=== PATIENT | male | born 1980 | race Two or more races ===

== ENCOUNTER 2017-02-11 19:12 | Emergency (ER) | payer MEDICAID ==
--- NOTE | 2017-02-11 20:26 | ED PDOC ---
HPI: Psych/Substance Abuse Time Seen by Provider: 02/11/17 19:30 Chief Complaint (Nursing): Psychiatric Evaluation Chief Complaint (Provider): Psychiatric Evaluation ED Caveat: Uncooperative, Psychotic History Per: EMS Onset/Duration Of Symptoms: Days (x 1) Additional Complaint(s): Ronak Guzman is a 36 year old male who was brought in by EMS for psychiatric evaluation, onset a few hours ago. According to EMS, he was found at the pharmacy acting abnormally. When the pharmacy staff approached him, he swallowed a handful of iron pills. Upon arrival to the ED he did not answer questions so the history will be limited. The patient as been treated at [facility] for acute psychosis and transferred to [facility] multiple times. PMD: non [facility] provider Past Medical History Reviewed: Historical Data, Nursing Documentation, Vital Signs Vital Signs: Last Vital Signs Temp 98.0 F 02/11/17 19:21 Pulse 92 H 02/11/17 19:21 Resp 18 02/11/17 19:21 BP 140/87 02/11/17 19:21 Pulse Ox 99 02/11/17 19:21 - Medical History Other PMH: Schizoaffective disorder - Surgical History Other surgeries: Unknown - Family History Family History: States: Unknown Family Hx - Home Medications Home Medications: Ambulatory Orders Medication Instructions Recorded No Known Home Med 02/12/17 - Allergies Allergies/Adverse Reactions: Allergies Allergy/AdvReac Type Severity Reaction Status Date / Time Unobtainable Allergy Verified 02/11/17 19:25 Review of Systems Review Of Systems: ROS cannot be obtained secondary to pt's inabilty to answer questions. Physical Exam - Reviewed Nursing Documentation Reviewed: Yes Vital Signs Reviewed: Yes - Physical Exam Appears: Positive for: No Acute Distress Head Exam: Positive for: ATRAUMATIC, NORMOCEPHALIC Skin: Positive for: Warm, Dry Eye Exam: Positive for: EOMI, PERRL. Negative for: Nystagmus ENT: Positive for: Pharynx Is (clear) Neck: Positive for: Painless ROM, Supple Cardiovascular/Chest: Positive for: Regular Rate, Rhythm. Negative for: Murmur Respiratory: Positive for: Normal Breath Sounds. Negative for: Wheezing Gastrointestinal/Abdominal: Positive for: Soft. Negative for: Tenderness Back: Positive for: Normal Inspection. Negative for: Vertebral Tenderness Extremity: Positive for: Normal ROM. Negative for: Capillary Refill Lymphatic: Negative for: Adenopathy Neurologic/Psych: Positive for: Alert, Mood/Affect (minimally verbal and flat, possible internal stimuli). Negative for: Motor/Sensory Deficits - Laboratory Results Result Diagrams: 02/11/17 20:24 02/11/17 20:24 - ECG ECG: Positive for: Interpreted By Me ECG Rhythm: Positive for: Normal QRS, Normal ST Segment, Sinus Rhythm O2 Sat by Pulse Oximetry: 99 Pulse Ox Interpretation: Normal - Radiology X-Ray: Interpreted by Me X-Ray Interpretation: No Acute Disease - Critical Care Total Time (In Min): 30 Comments: For management of violent psychotic behavior Documented Critical Care: Time excludes all time spent performint seperately billable procedures Medical Decision Making Medical Decision Making: Time: 19:48 Impression: Altered Mental Status Differential diagnoses include psychosis, drug/ alcohol intoxication, metabolic encephalopathy, iron overdose Plan: --EKG --urine Drug screen --Poison Control consult --Urine Dipstick --EKG --Abdomen with chest X Ray --Chest X Ray 1030p --Labs and imaging reviewed, all are unremarkable. Xrays did not show any presence of iron tablets. --According to previous medical records, patient was diagnosed with schizoaffective disorder previously, and patient has similar lack of cooperation with history and minimal communication on previous visits as well. MR at those visits #[id number] --Pt medically stable for psychiatric admission. 1120p Pt began to have destructive behavior and punching canchola/items in the room. Unable to redirect. Pt will be medicated for violent psychotic behavior. Scribe Attestation: Documented by Brittney Muñoz, acting as a scribe for Sonali Brody MD. Provider Scribe Attestation: All medical record entries made by the Scribe were at my direction and personally dictated by me. I have reviewed the chart and agree that the record accurately reflects my personal performance of the history, physical exam, medical decision making, and the department course for this patient. I have also personally directed, reviewed, and agree with the discharge instructions and disposition. Disposition - Clinical Impression Clinical Impression: Psychosis - Disposition Disposition: Transfer of Care Disposition Time: 00:00 Condition: STABLE Forms: [employer] (Tajik) Patient Signed Over To: Wicho Quinteros Handoff Comments: Pending crsis eval
[2017-02-11 20:28] LABS: BASO % 0.4 % (0.0-2.0); EOS # 0.1 K/uL (0.0-0.7); EOS % 1.3 % (0.0-4.0); HEMATOCRIT 43.2 % (35.0-51.0); LYMPH # 1.6 K/uL (1.0-4.3); LYMPH % 16.2 % (20.0-40.0); MEAN CELL VOLUME 86.1 fl (80.0-94.0); MEAN CORPUSCULAR HEMOGLOBIN 28.5 pg (27.0-31.0); MEAN CORPUSCULAR HGB CONC 33.1 g/dL (33.0-37.0); MONO # 0.8 K/uL (0.0-0.8); MONO % 8.1 % (0.0-10.0); NEUT # 7.4 K/uL (1.8-7.0); RED CELL DISTRIBUTION WIDTH 12.9 % (11.5-14.5)
[2017-02-11 20:40] LABS: IRON 74 ug/dL (49-181)
[2017-02-11 20:41] LABS: ALCOHOL SERUM < 10 mg/dl (0-10); ALKALINE PHOSPHATASE 73 U/L (38-126); ALT/SGPT 37 U/L (21-72); AST/SGOT 31 U/L (17-59); BILIRUBIN,TOTAL 0.5 mg/dl (0.2-1.3); BLOOD UREA NITROGEN 12 mg/dl (9-20); CALCIUM 9.2 mg/dL (8.4-10.2); CARBON DIOXIDE 26 mmol/L (22-30); CHLORIDE 103 mmol/L (98-107); GFR AFRICAN-AMERICAN > 60; GLUCOSE,RANDOM 112 mg/dL (75-110); PHOSPHOROUS 2.4 mg/dl (2.5-4.5); POTASSIUM 3.6 MMOL/L (3.6-5.0); SODIUM 141 mmol/l (132-148); TOTAL PROTEIN 8.4 G/DL (6.3-8.2)
[2017-02-11 20:49] LABS: VALPROIC ACID < 10.0 ug/mL (50.0-100.0)
[2017-02-11 20:52] LABS: ALB/GLOB RATIO 1.2 (1.0-2.1); PARTIAL THROMBOPLASTIN TIME 31.7 Seconds (25.6-37.1)
[2017-02-11 21:13] LABS: THYROID STIMULATING HORMONE 1.86 mIU/ML (0.46-4.68)
--- NOTE | 2017-02-12 00:53 | ED PDOC ---
- Laboratory Results Result Diagrams: 02/11/17 20:24 02/11/17 20:24 - ECG O2 Sat by Pulse Oximetry: 99 Medical Decision Making Medical Decision Making: Time: 00:39 Patient signed out to me by Dr. Sonali Brody MD pending [facility] screener evaluation. Reassess time: 07:00 Patient to be signed out to Dr. Ammy MD pending [facility] screener evaluation. Scribe Attestation: Documented by Buddy Balderrama acting as a scribe for Wicho Quinteros MD. Provider Attestation: All medical record entries made by the Scribe were at my direction and personally dictated by me. I have reviewed the chart and agree that the record accurately reflects my personal performance of the history, physical exam, medical decision making, and the department course for this patient. I have also personally directed, reviewed, and agree with the discharge instructions and disposition. Disposition - Clinical Impression Clinical Impression: Psychosis - POA Present On Arrival: None - Disposition Disposition: Routine/Home Disposition Time: 07:00 (Patient to be signed out to Dr. Ammy MD pending [facility] screener evaluation.) Condition: STABLE Forms: [employer] (Latvian) Patient Signed Over To: Myriam Gimenez
--- NOTE | 2017-02-12 06:50 | ED PDOC ---
- Laboratory Results Result Diagrams: 02/11/17 20:24 02/11/17 20:24 - ECG O2 Sat by Pulse Oximetry: 99 Medical Decision Making Medical Decision Making: Patient signed out to me by Dr. Wicho Quinteros MD pending [facility] screener evaluation. Time: Impression: Plan: Reassess Scribe Attestation: Documented by Buddy Balderrama acting as a scribe for MD. Provider Attestation: All medical record entries made by the Scribe were at my direction and personally dictated by me. I have reviewed the chart and agree that the record accurately reflects my personal performance of the history, physical exam, medical decision making, and the department course for this patient. I have also personally directed, reviewed, and agree with the discharge instructions and disposition. accepted by [facility]. pending bed for transfer. Disposition - Clinical Impression Clinical Impression: Psychosis - POA Present On Arrival: None - Disposition Disposition: Transfer of Care Disposition Time: 14:55 Condition: STABLE Forms: [employer] (Kyrgyz) Patient Signed Over To: Sonali Brody
--- NOTE | 2017-02-12 10:19 | CARD ---
APPROVED REPORT EKG Measurement Heart [id number] <Conclusion> Normal sinus rhythm Normal ECG
--- NOTE | 2017-02-12 13:35 | RAD ---
Chest and abdomen dated 02/11/2017. History: Swallowed and feels. Frontal view of the chest and supine/erect views of the abdomen performed. No prior study available comparison. Findings: The current study reveals no acute infiltrates. . Cardiomediastinal silhouette normal. No effusion or apparent pneumothorax. No free air seen under the diaphragmatic surfaces. Moderately to large amount of stool seen throughout the colon consistent with fecal retention/ constipation. Note made of a mild dextroscoliosis is centered at the L2-L3 level. Impression: No acute cardiopulmonary disease. . Findings consistent with constipation.
--- NOTE | 2017-02-12 15:07 | ED PDOC ---
- Laboratory Results Result Diagrams: 02/11/17 20:24 02/11/17 20:24 - ECG O2 Sat by Pulse Oximetry: 99 (RA) Pulse Ox Interpretation: Normal Medical Decision Making Medical Decision Making: Patient signed out to me from Dr. Gimenez at 1500 pending bed at [facility] Patient already medically cleared and accepted. 8p Stable. No acute distress. Scribe Attestation Documented by Gregoria Feliz acting as a scribe for Sonali Brody MD. Provider Attestation All medical record entries made by the Scribe were at my direction and personally dictated by me. I have reviewed the chart and agree that the record accurately reflects my personal performance of the history, physical exam, medical decision making, and the department course for this patient. I have also personally directed, reviewed, and agree with the discharge instructions and disposition. Disposition - Clinical Impression Clinical Impression: Psychosis - POA Present On Arrival: None - Disposition Disposition: Other Institution Disposition Time: 15:00 Condition: STABLE Forms: [email or web address] (Upper Sorbian)
[2017-02-12 17:47] VITALS: RESP 16
[2017-02-12 20:35] VITALS: BP 115/66; PULSE 86; TEMP 98.2
[2017-02-12 20:57] VITALS: O2SAT 99
== END 2017-02-12 22:02 | disposition short-term general hospital (02) ==
LOC: EDBD 19:12 → MERGE 19:12 → H.ER 19:12
DX: F23 Brief psychotic disorder (principal); Z86.59 Personal history of other mental and behavioral disorders; Z00.8 Encounter for other general examination
CPT/HCPCS: 74022; 80053; 80164; 80320; 80324; 80329; 80345; 80346; 80349; 80353; 80358; 80361; 82948; 83540; 83550; 83735; 83992; 84100; 84443; 85025; 85610; 85730; 93005; 96372; 99285; J1630; J2060

== ENCOUNTER 2017-04-15 10:41 | Emergency (ER) | payer MEDICAID ==
[2017-04-15 10:41] VITALS: BMI 28.7
--- NOTE | 2017-04-15 11:19 | ED PDOC ---
HPI: Psych/Substance Abuse Time Seen by Provider: 04/15/17 11:09 Chief Complaint (Nursing): Psychiatric Evaluation Chief Complaint (Provider): Psychosis History Per: Patient, EMS History/Exam Limitations: clinical condition Onset/Duration Of Symptoms: Days (today) Additional Complaint(s): Pt. appears paranoid and anxious. Questioning back all that is asked. Pt. found wandering in the library and stated he was looking for some protocols. Pt. denies suicidal or homicidal ideation. Not taking any meds. Here multiple times for psychosis and admit to [facility]. Pt. denies taking anything today, but states couple days ago he took some pills, but does not mention which. No nausea, vomit, pain. Answers limited questions. Past Medical History Reviewed: Nursing Documentation, Vital Signs Vital Signs: Last Vital Signs Temp 97.7 F 04/15/17 10:44 Pulse 73 04/15/17 10:44 Resp 18 04/15/17 10:44 BP 162/103 H 04/15/17 10:44 Pulse Ox 99 04/15/17 10:44 - Medical History PMH: Denies: Diabetes, Hepatitis, HIV, HTN, Seizures, Sexually Transmitted Disease Other PMH: schizoaffective - Surgical History Surgical History: No Surg Hx - Family History Family History: States: Unknown Family Hx - Home Medications Home Medications: Ambulatory Orders Medication Instructions Recorded Unobtainable [Unobtainable] 07/29/14 No Known Home Med 02/12/17 - Allergies Allergies/Adverse Reactions: Allergies Allergy/AdvReac Type Severity Reaction Status Date / Time No Known Allergies Allergy Verified 07/02/15 12:19 Review of Systems ROS Statement: Except As Marked, All Systems Reviewed And Found Negative Constitutional: Negative for: Weakness Psych: Positive for: Psychosis Physical Exam - Reviewed Nursing Documentation Reviewed: Yes Vital Signs Reviewed: Yes - Physical Exam Appears: Positive for: Non-toxic, No Acute Distress Head Exam: Positive for: ATRAUMATIC, NORMAL INSPECTION, NORMOCEPHALIC Skin: Positive for: Normal Color, Warm, DRY Eye Exam: Positive for: EOMI, Normal appearance, PERRL ENT: Positive for: Normal ENT Inspection Neck: Positive for: Normal, Painless ROM Cardiovascular/Chest: Positive for: Regular Rate, Rhythm Respiratory: Positive for: CNT, Normal Breath Sounds Gastrointestinal/Abdominal: Positive for: Normal Exam, Bowel Sounds, Soft. Negative for: Tenderness Back: Positive for: Normal Inspection. Negative for: L CVA Tenderness, R CVA Tenderness Extremity: Positive for: Normal ROM. Negative for: Tenderness, Pedal Edema Neurologic/Psych: Positive for: Alert, Other (limited as pt. only following some commands; paranoid). Negative for: Motor/Sensory Deficits - Laboratory Results Result Diagrams: 04/15/17 12:51 04/15/17 12:51 Interpretation Of Abn Labs: no acute - ECG ECG: Positive for: Interpreted By Me, Viewed By Me ECG Rhythm: Positive for: Normal QRS, Normal ST Segment, Sinus Rhythm O2 Sat by Pulse Oximetry: 99 Pulse Ox Interpretation: Normal - Radiology X-Ray: Read By Radiologist X-Ray Interpretation: No Acute Disease - Progress ED Course And Treament: 1158: Nurse spoke with poison control. Symptomatic tx and do eval. 1604: Stable. Medically stable for [place] [facility] [place]. 1855: Dr. Valdez to take over care. [place] [facility] Disposition - Clinical Impression Clinical Impression: Schizoaffective disorder - Disposition Disposition Time: 18:54 Condition: STABLE Patient Signed Over To: Gissel Valdez
--- NOTE | 2017-04-15 12:03 | RAD ---
HISTORY: psych eval COMPARISON: Comparison made with prior chest radiograph 01/29/2016. FINDINGS: LUNGS: No active pulmonary disease. PLEURA: No significant pleural effusion identified, no pneumothorax apparent. CARDIOVASCULAR: Normal. OSSEOUS STRUCTURES: No significant abnormalities. VISUALIZED UPPER ABDOMEN: Normal. OTHER FINDINGS: None. IMPRESSION: No active disease.
[2017-04-15 13:06] LABS: BASO % 0.6 % (0.0-2.0); EOS # 0.1 K/uL (0.0-0.7); EOS % 1.4 % (0.0-4.0); HEMOGLOBIN 13.9 g/dL (12.0-18.0); LYMPH # 1.6 K/uL (1.0-4.3); LYMPH % 19.9 % (20.0-40.0); MEAN CORPUSCULAR HEMOGLOBIN 28.9 pg (27.0-31.0); MEAN CORPUSCULAR HGB CONC 34.4 g/dL (33.0-37.0); MEAN PLATELET VOLUME 8.1 fl (7.2-11.7); MONO # 0.6 K/uL (0.0-0.8); MONO % 7.1 % (0.0-10.0); NEUT # 5.6 K/uL (1.8-7.0); NRBC % 0.1 % (0.0-0.0); RBC 4.82 Mil/uL (4.40-5.90); RED CELL DISTRIBUTION WIDTH 13.4 % (11.5-14.5); WHITE BLOOD COUNT 7.9 K/uL (4.8-10.8)
--- NOTE | 2017-04-15 13:06 | CARD ---
APPROVED REPORT EKG Measurement Heart [id number] <Conclusion> Normal sinus rhythm Early repolarization Normal ECG
[2017-04-15 13:16] LABS: MEAN CELL VOLUME 84.1 fl (80.0-94.0)
[2017-04-15 13:18] LABS: ACETAMINOPHEN < 10.0 ug/ml (10.0-30.0); ALB/GLOB RATIO 1.1 (1.0-2.1); ALBUMIN 4.5 g/dL (3.5-5.0); ALT/SGPT 40 U/L (21-72); AST/SGOT 41 U/L (17-59); BLOOD UREA NITROGEN 11 mg/dl (9-20); CALCIUM 9.5 mg/dL (8.4-10.2); GFR AFRICAN-AMERICAN > 60; GFR NON-AFRICAN AMERICAN > 60; SALICYLATE < 1.0 mg/dl
[2017-04-15 15:18] LABS: BARBITURATES, UR NEGATIVE (NEGATIVE); BENZODIAZEPINES, UR NEGATIVE (NEGATIVE); OPIATES, UR NEGATIVE (NEGATIVE); PHENCYCLIDINE, UR NEGATIVE (NEGATIVE)
--- NOTE | 2017-04-15 19:09 | ED PDOC ---
- Laboratory Results Result Diagrams: 04/15/17 12:51 04/15/17 12:51 - ECG O2 Sat by Pulse Oximetry: 99 (RA) Pulse Ox Interpretation: Normal Medical Decision Making Medical Decision Makin:00 Transfer of care endorsed to me pending [facility] screening. Patient has been medically cleared by previous team. 5:05 Patient has been agitated and aggressive, ordered restraints for agitation to prevent self-harm. Patient will also be given Ativan for agitationa psychosis. 7:[address] Farrell pending bed assignment at [facility]. Scribe Attestation: Documented by Brittney Muñoz and Dionne Mccarthy, acting as scribes for Gissel Valdez MD. Provider Scribe Attestation: All medical record entries made by the Scribe were at my direction and personally dictated by me. I have reviewed the chart and agree that the record accurately reflects my personal performance of the history, physical exam, medical decision making, and the department course for this patient. I have also personally directed, reviewed, and agree with the discharge instructions and disposition. Disposition - Clinical Impression Clinical Impression: Schizoaffective disorder - POA Present On Arrival: None - Disposition Disposition: Transfer of Care Disposition Time: 07:00 Condition: STABLE Patient Signed Over To: Jus Farrell III
--- NOTE | 2017-04-16 07:07 | ED PDOC ---
- Laboratory Results Result Diagrams: 04/15/17 12:51 04/15/17 12:51 - ECG O2 Sat by Pulse Oximetry: 99 (RA) Medical Decision Making Medical Decision Makinam recd pending bed [place] [facility] Disposition - Clinical Impression Clinical Impression: Schizoaffective disorder - Disposition Condition: STABLE Forms: [facility] [facility] [employer] (Serbian)
--- NOTE | 2017-04-16 10:37 | RAD ---
HISTORY: medical clearance COMPARISON: Chest radiograph performed approximately 10 hours prior. FINDINGS: LUNGS: No active pulmonary disease. PLEURA: No significant pleural effusion identified, no pneumothorax apparent. CARDIOVASCULAR: Normal. OSSEOUS STRUCTURES: No significant abnormalities. VISUALIZED UPPER ABDOMEN: Normal. OTHER FINDINGS: None. IMPRESSION: No active disease.
[2017-04-16 14:27] VITALS: RESP 20; O2SAT 98
[2017-04-16 20:37] VITALS: BP 132/78; PULSE 99; TEMP 98.4
== END 2017-04-16 23:41 | disposition short-term general hospital (02) ==
LOC: H.ER 10:41
DX: F25.9 Schizoaffective disorder, unspecified (principal)
CPT/HCPCS: 71045; 80053; 80320; 80324; 80329; 80345; 80346; 80349; 80353; 80358; 80361; 83992; 85025; 93005; 96372; 99285; J2060

== ENCOUNTER 2017-10-28 14:41 | Inpatient (IN) | payer MEDICAID ==
[2017-10-28] MEDS ORDERED: Naloxone 0.4 mg/ml Inj (Adult) ONE (14:48)
[2017-10-28 14:49] VITALS: BMI 25.7
[2017-10-28] MEDS ORDERED: Sodium Chloride 0.9% 1,000 ML IV STA (14:49)
[2017-10-28] MEDS ORDERED: Naloxone 0.4 mg/ml Inj (Adult) IVP STA (14:50)
--- NOTE | 2017-10-28 15:00 | ED PDOC ---
HPI: General Adult Time Seen by Provider: 10/28/17 14:48 Chief Complaint (Provider): altered behavior History Per: EMS History/Exam Limitations: clinical condition Onset/Duration Of Symptoms: Days (today) Additional Complaint(s): Pt. found altered sitting on someone's porch. Pt. not verbally communicating. Pt. given d50 as sugar was in the 50s by paramedics with no mental status changes. Limited H and P. Past Medical History Reviewed: Nursing Documentation, Vital Signs Vital Signs: Last Vital Signs Temp 98.2 F 10/28/17 14:54 Pulse 95 H 10/28/17 17:36 Resp 20 10/28/17 17:36 BP 150/80 10/28/17 17:36 Pulse Ox 99 10/28/17 17:36 limited h and p - Medical History PMH: Schizophrenia Denies: Diabetes, Hepatitis, HIV, HTN, Seizures, Sexually Transmitted Disease - Surgical History Surgical History: No Surg Hx - Family History Family History: States: Unknown Family Hx - Home Medications Home Medications: Ambulatory Orders Medication Instructions Recorded No Known Home Med 02/12/17 - Allergies Allergies/Adverse Reactions: Allergies Allergy/AdvReac Type Severity Reaction Status Date / Time No Known Allergies Allergy Verified 07/02/15 12:19 Review of Systems Review Of Systems: ROS cannot be obtained secondary to pt's inabilty to answer questions. Physical Exam - Reviewed Nursing Documentation Reviewed: Yes Vital Signs Reviewed: Yes - Physical Exam Appears: Positive for: Uncomfortable Head Exam: Positive for: ATRAUMATIC, NORMAL INSPECTION, NORMOCEPHALIC Skin: Positive for: Normal Color, Warm Eye Exam: Positive for: PERRL, Other (not following commands). Negative for: Periorbital swelling, Periorbital tenderness ENT: Positive for: Other (no gross swelling or injury) Neck: Positive for: Supple, Trachea Midline Cardiovascular/Chest: Positive for: Regular Rate, Rhythm Respiratory: Positive for: Normal Breath Sounds Gastrointestinal/Abdominal: Positive for: Soft. Negative for: Tenderness Back: Positive for: Normal Inspection Extremity: Negative for: Tenderness, Pedal Edema, Deformity Neurologic/Psych: Positive for: Other (limited neuro exam as pt. does not follow any commands; responsive to painful stimuli; has gag reflex; eyes open and staring in space). Negative for: Alert, Oriented - Laboratory Results Result Diagrams: 10/28/17 15:18 10/28/17 15:18 Interpretation Of Abn Labs: no acute - ECG ECG: Positive for: Interpreted By Me, Viewed By Me ECG Rhythm: Positive for: Sinus Tachycardia - CT Scan/US ct Other Rad Studies (CT/US): Read By Radiologist Other Rad Interpretation: no acute - Progress ED Course And Treament: 1500: Per records, pt. with schizzoaffective do and [facility] admits. 1658: Stable. Not speaking but eyes opening and focuses. Pt. medically stable for psychiatric eval. 180: Pt. responds loudly to pain and when IV was put in. Pt. given ativan per psych recommendations in case pt. has catatonia. 1839: Dr. Nano mixon on crisis/[facility]. CXR ordered. Disposition - Clinical Impression Clinical Impression: Schizoaffective disorder - Patient ED Disposition Is Patient to be Admitted: Transfer of Care - Disposition Disposition: Transfer of Care Disposition Time: 18:40 Condition: FAIR Patient Signed Over To: Gissel Valdez
[2017-10-28 15:29] LABS: INR 1.2; PROTHROMBIN TIME 13.2 Seconds (9.8-13.1)
[2017-10-28 15:32] LABS: BASO # 0.1 K/uL (0.0-0.2); BASO % 0.5 % (0.0-2.0); EOS # 0.1 K/uL (0.0-0.7); EOS % 0.7 % (0.0-4.0); HEMOGLOBIN 15.3 g/dL (12.0-18.0); LYMPH % 19.3 % (20.0-40.0); MEAN CORPUSCULAR HEMOGLOBIN 28.8 pg (27.0-31.0); MEAN CORPUSCULAR HGB CONC 33.9 g/dL (33.0-37.0); MEAN PLATELET VOLUME 8.1 fl (7.2-11.7); MONO # 0.9 K/uL (0.0-0.8); MONO % 8.5 % (0.0-10.0); NEUT # 7.5 K/uL (1.8-7.0); NRBC % 0.1 % (0.0-0.0); PARTIAL THROMBOPLASTIN TIME 36.6 Seconds (25.6-37.1); RBC 5.31 Mil/uL (4.40-5.90); RED CELL DISTRIBUTION WIDTH 13.4 % (11.5-14.5); WHITE BLOOD COUNT 10.5 K/uL (4.8-10.8)
[2017-10-28 15:36] LABS: ALBUMIN 4.9 g/dL (3.5-5.0); ALT/SGPT 27 U/L (21-72); AST/SGOT 60 U/L (17-59); BLOOD UREA NITROGEN 21 mg/dl (9-20); CALCIUM 10.4 mg/dL (8.4-10.2); GFR AFRICAN-AMERICAN > 60; GFR NON-AFRICAN AMERICAN > 60
[2017-10-28 15:43] LABS: BARBITURATES, UR NEGATIVE (NEGATIVE); BENZODIAZEPINES, UR NEGATIVE (NEGATIVE); OPIATES, UR NEGATIVE (NEGATIVE); PHENCYCLIDINE, UR NEGATIVE (NEGATIVE)
[2017-10-28 16:30] LABS: ACETAMINOPHEN < 10.0 ug/ml (10.0-30.0); SALICYLATE < 1.0 mg/dl
--- NOTE | 2017-10-28 16:33 | CT ---
Date of service: 10/28/2017 PROCEDURE: CT HEAD WITHOUT CONTRAST. HISTORY: headache COMPARISON: None available. TECHNIQUE: Axial computed tomography images were obtained through the head/brain without intravenous contrast. Coronal and sagittal reconstructed images. Radiation dose: Total exam DLP = 894.86 mGy-cm. This CT exam was performed using one or more of the following dose reduction techniques: Automated exposure control, adjustment of the mA and/or kV according to patient size, and/or use of iterative reconstruction technique. FINDINGS: HEMORRHAGE: No intracranial hemorrhage. BRAIN: No mass effect or edema. No atrophy or chronic microvascular ischemic changes. VENTRICLES: Unremarkable. No hydrocephalus. CALVARIUM: Unremarkable. PARANASAL SINUSES: Unremarkable as visualized. No significant inflammatory changes. MASTOID AIR CELLS: Unremarkable as visualized. No inflammatory changes. OTHER FINDINGS: None. IMPRESSION: No acute intracranial abnormalities. No significant findings to account for the clinical presentation.
[2017-10-28] MEDS ORDERED: Dextrose 50% SYRINGE Inj (50 ml) ONE (18:56)
[2017-10-28] MEDS ORDERED: Dextrose 50% SYRINGE Inj (50 ml) IVP ONE (18:59)
[2017-10-28] MEDS: Dextrose 5%/0.45% NS 1,000 ML IV SCH (19:45)
[2017-10-28] MEDS ORDERED: Dextrose 50% SYRINGE Inj (50 ml) IV PRN (22:21)
--- NOTE | 2017-10-28 22:31 | CP.PCM.CON ---
History of Present Illness - History of Present Illness History of Present Illness: This is a 37 year old male with pmh of schizoaffective disorder and history of psychosis, with multiple admissions to psychiatric units including [facility], who was found altered and not responsive to verbal questioning sitting on someone's porch in a catatonic state. The patient was given D 50 as his glucose was found to be in the 50s by paramedics and he was subsequently transported to the [place] ED. In the ER he responded loudly to pain and when the IV was put in. Psychiatry was consulted and recommended Ativan PRN for catatonia. The patient is being admitted to ICU due to acute catatonic state and unresponsive to verbal questioning. ROS unable to be performed. Review of Systems - Review of Systems Systems not reviewed;Unavailable: Altered Mental Status Past Patient History - Infectious Disease Hx of Infectious Diseases: None - Past Medical History & Family History Past Medical History?: Yes - Past Social History Smoking Status: Unknown If Ever Smoked - CARDIAC Hx Cardiac Disorders: No Hx Hypertension: No - PULMONARY Hx Tuberculosis: No - NEUROLOGICAL HX Cerebrovascular Accident: No Hx Seizures: No - HEMATOLOGICAL/ONCOLOGICAL Hx Cancer: No Hx Human Immunodeficiency Virus (HIV): No - GENITOURINARY/GYNECOLOGICAL Hx Sexually Transmitted Disorders: No - PSYCHIATRIC Hx Schizophrenia: Yes Meds Allergies/Adverse Reactions: Allergies Allergy/AdvReac Type Severity Reaction Status Date / Time No Known Allergies Allergy Verified 07/02/15 12:19 - Medications Medications: Current Medications Dextrose/Sodium Chloride (Dextrose 5%/0.45% Ns 1000 Ml) 1,000 mls @ 100 mls/hr IV .Q10H RAKAN Stop: 10/29/17 19:09 Last Admin: 10/28/17 19:45 Dose: 100 mls/hr Ondansetron HCl (Zofran Inj) 4 mg IVP Q6H PRN PRN Reason: Nausea/Vomiting Physical Exam - Additional Findings Additional findings: Physical exam: Constitutional- awake but not responding to verbal commands. Responds to noxious stimuli. Head- NCAT, PERRL Eye- PERRL, EOMI ENT- normal exam, MMM. Neck- normal inspection, supple, no JVD Respiratory- CTAB, no wheezes rales rhonchi Cardiovascular- RRR, +S1, +S2 no MRG GI/Abdominal- normal bowel sounds, soft, no mass, no hsm Skin- warm, dry Extremities Exam- normal capillary refill, normal inspection Neurological Exam- alert, awake, oriented Psych- Acute catatonic state. Results - Vital Signs Recent Vital Signs: Last Vital Signs Temp 98.2 F 10/28/17 14:54 Pulse 95 H 10/28/17 17:36 Resp 20 10/28/17 17:36 BP 150/80 10/28/17 17:36 Pulse Ox 99 10/28/17 17:36 - Labs Result Diagrams: 10/28/17 15:18 10/28/17 15:18 Labs: Laboratory Results - last 24 hr 10/28/17 10/28/17 10/28/17 14:47 15:18 15:18 WBC 10.5 RBC 5.31 Hgb 15.3 Hct 45.1 MCV 85.0 MCH 28.8 MCHC 33.9 RDW 13.4 Plt Count 322 MPV 8.1 Neut % (Auto) 71.0 Lymph % (Auto) 19.3 L Caldwell % (Auto) 8.5 Eos % (Auto) 0.7 Baso % (Auto) 0.5 Neut # (Auto) 7.5 H Lymph # (Auto) 2.0 Caldwell # (Auto) 0.9 H Eos # (Auto) 0.1 Baso # (Auto) 0.1 PT INR APTT Sodium 145 Potassium 4.1 Chloride 104 Carbon Dioxide 23 Anion Gap 22 H BUN 21 H Creatinine 1.3 Est GFR ( Amer) > 60 Est GFR (Non-Af Amer) > 60 POC Glucose (mg/dL) 204 H Random Glucose 229 H Calcium 10.4 H Total Bilirubin 1.2 AST 60 H D ALT 27 Alkaline Phosphatase 86 Troponin I 0.0140 Total Protein 9.7 H Albumin 4.9 Globulin 4.8 H Albumin/Globulin Ratio 1.0 Salicylates Urine Opiates Screen Urine Methadone Screen Acetaminophen Ur Barbiturates Screen Ur Phencyclidine Scrn Ur Amphetamines Screen U Benzodiazepines Scrn U Oth Cocaine Metabols U Cannabinoids Screen Alcohol, Quantitative < 10 10/28/1718 10/28/17 15:18 15:18 15:18 WBC RBC Hgb Hct MCV MCH MCHC RDW Plt Count MPV Neut % (Auto) Lymph % (Auto) Caldwell % (Auto) Eos % (Auto) Baso % (Auto) Neut # (Auto) Lymph # (Auto) Caldwell # (Auto) Eos # (Auto) Baso # (Auto) PT 13.2 H INR 1.2 APTT 36.6 Sodium Potassium Chloride Carbon Dioxide Anion Gap BUN Creatinine Est GFR ( Amer) Est GFR (Non-Af Amer) POC Glucose (mg/dL) Random Glucose Calcium Total Bilirubin AST ALT Alkaline Phosphatase Troponin I Total Protein Albumin Globulin Albumin/Globulin Ratio Salicylates < 1.0 Urine Opiates Screen Negative Urine Methadone Screen Negative Acetaminophen < 10.0 L Ur Barbiturates Screen Negative Ur Phencyclidine Scrn Negative Ur Amphetamines Screen Negative U Benzodiazepines Scrn Negative U Oth Cocaine Metabols Negative U Cannabinoids Screen Negative Alcohol, Quantitative 10/28/17 10/28/17 18:52 19:31 WBC RBC Hgb Hct MCV MCH MCHC RDW Plt Count MPV Neut % (Auto) Lymph % (Auto) Caldwell % (Auto) Eos % (Auto) Baso % (Auto) Neut # (Auto) Lymph # (Auto) Caldwell # (Auto) Eos # (Auto) Baso # (Auto) PT INR APTT Sodium Potassium Chloride Carbon Dioxide Anion Gap BUN Creatinine Est GFR ( Amer) Est GFR (Non-Af Amer) POC Glucose (mg/dL) 70 141 H Random Glucose Calcium Total Bilirubin AST ALT Alkaline Phosphatase Troponin I Total Protein Albumin Globulin Albumin/Globulin Ratio Salicylates Urine Opiates Screen Urine Methadone Screen Acetaminophen Ur Barbiturates Screen Ur Phencyclidine Scrn Ur Amphetamines Screen U Benzodiazepines Scrn U Oth Cocaine Metabols U Cannabinoids Screen Alcohol, Quantitative Assessment & Plan - Assessment and Plan (Free Text) Plan: This is a 37 year old male with pmh of schizoaffective disorder and history of psychosis, with multiple admissions to psychiatric units including [facility], who was found altered and not responsive to verbal questioning sitting on someone's porch in a catatonic state. The patient was given D 50 as his glucose was found to be in the 50s by paramedics and he was subsequently transported to the [place] ED. In the ER he responded loudly to pain and when the IV was put in. Psychiatry was consulted and recommended Ativan PRN for catatonia. The patient is being admitted to ICU due to acute catatonic state and unresponsive to verbal questioning. ROS unable to be performed. 1) acute catatonic state, unresponsive to verbal stimuli - Admit to ICU under Dr. Alcazar - 1:1 sitter - Ativan 1 mg IVP PRN - NPO status - Monitor vitals per ICU protocol - Psychiatry consult - repeat labs in AM -reeval in AM 2) Hypoglycemia - Continue Dextrose infusion at 100 cc/hour - Monitor Accucheks q 2 hours - Hypoglycemia protocol order placed 3) DVT prophylaxis - scds
[2017-10-29 04:45] LABS: BASO % 0.6 % (0.0-2.0); EOS # 0.2 K/uL (0.0-0.7); EOS % 2.5 % (0.0-4.0); HEMOGLOBIN 13.5 g/dL (12.0-18.0); LYMPH # 2.2 K/uL (1.0-4.3); LYMPH % 28.1 % (20.0-40.0); MEAN CELL VOLUME 85.3 fl (80.0-94.0); MEAN CORPUSCULAR HEMOGLOBIN 29.3 pg (27.0-31.0); MEAN CORPUSCULAR HGB CONC 34.3 g/dL (33.0-37.0); MEAN PLATELET VOLUME 7.5 fl (7.2-11.7); MONO # 0.9 K/uL (0.0-0.8); MONO % 12.3 % (0.0-10.0); NEUT # 4.4 K/uL (1.8-7.0); NEUT % 56.5 % (50.0-75.0); NRBC % 0.1 % (0.0-0.0); RBC 4.61 Mil/uL (4.40-5.90); RED CELL DISTRIBUTION WIDTH 13.1 % (11.5-14.5); WHITE BLOOD COUNT 7.7 K/uL (4.8-10.8)
[2017-10-29 05:05] LABS: ALB/GLOB RATIO 1.1 (1.0-2.1); ALT/SGPT 21 U/L (21-72); AST/SGOT 47 U/L (17-59); BLOOD UREA NITROGEN 17 mg/dl (9-20); CALCIUM 8.6 mg/dL (8.4-10.2); GFR AFRICAN-AMERICAN > 60; GFR NON-AFRICAN AMERICAN > 60
[2017-10-29] MEDS: Dextrose 5%/0.45% NS 1,000 ML IV SCH ×2 (06:07→14:47)
--- NOTE | 2017-10-29 07:42 | CARD ---
APPROVED REPORT Date of service: 10/28/2017 <Conclusion> Suspect arm lead reversal, interpretation assumes no reversal Sinus tachycardia Left posterior fascicular block Abnormal ECG
--- NOTE | 2017-10-29 08:24 | CP.CCUPN ---
CCU Subjective - Physician Review Events Since Last Encounter (Free Text): Patient awake, no response to verbal stimuli, catatonic, no distress, no fever, events reviewed CCU Objective - Vital Signs / Intake & Output Vital Signs (Last 4 hours): Vital Signs Pulse Resp BP Pulse Ox 10/29/17 06:00 70 18 123/76 100 Intake and Output (Last 8hrs): Intake & Output 10/28/17 10/29/17 10/29/17 22:59 06:59 14:59 Intake Total 500 Balance 500 Intake: IV 500 - Physical Exam Head: Positive for: Atraumatic, Normocephalic Pupils: Positive for: PERRL Conjunctiva: Positive for: Normal Ears: Positive for: Normal Mouth: Positive for: Moist Mucous Membranes Nose (External): Positive for: Atraumatic Neck: Positive for: Normal Range of Motion Respiratory/Chest: Positive for: Clear to Auscultation Cardiovascular: Positive for: Regular Rate and Rhythm Abdomen: Positive for: Normal Bowel Sounds Upper Extremity: Positive for: Normal Inspection Lower Extremity: Positive for: Normal Inspection Neurological: Positive for: Other (no response to verbal stimuli, catatonic) Skin: Positive for: Normal Color Psychiatric: Positive for: Other (no response to verbal stimuli, catatonic) - Medications Active Medications: Active Medications Generic Name Dose Route Start Last Admin Trade Name Freq PRN Reason Stop Dose Admin Dextrose 0 ml 10/28/17 22:21 Dextrose 50% Inj IV STAT PRN Hypoglycemia Protocol Protocol Dextrose/Sodium Chloride 1,000 mls @ 100 mls/hr 10/28/17 19:15 10/29/17 06:07 Dextrose 5%/0.45% Ns 1000 Ml IV 10/29/17 19:09 100 mls/hr .Q10H RAKAN Administration Lorazepam 1 mg 10/28/17 20:45 Ativan IVP Q4 PRN Agitation Ondansetron HCl 4 mg 10/28/17 20:42 Zofran Inj IVP Q6H PRN Nausea/Vomiting - Patient Studies Lab Studies: Lab Studies 10/29/17 10/29/17 10/28/17 Range/Units 04:25 04:25 19:31 WBC 7.7 (4.8-10.8) K/uL RBC 4.61 (4.40-5.90) Mil/uL Hgb 13.5 (12.0-18.0) g/dL Hct 39.3 (35.0-51.0) % MCV 85.3 (80.0-94.0) fl MCH 29.3 (27.0-31.0) pg MCHC 34.3 (33.0-37.0) g/dL RDW 13.1 (11.5-14.5) % Plt Count 266 (130-400) K/uL MPV 7.5 (7.2-11.7) fl Neut % (Auto) 56.5 (50.0-75.0) % Lymph % (Auto) 28.1 (20.0-40.0) % Franklin % (Auto) 12.3 H (0.0-10.0) % Eos % (Auto) 2.5 (0.0-4.0) % Baso % (Auto) 0.6 (0.0-2.0) % Neut # (Auto) 4.4 (1.8-7.0) K/uL Lymph # (Auto) 2.2 (1.0-4.3) K/uL Franklin # (Auto) 0.9 H (0.0-0.8) K/uL Eos # (Auto) 0.2 (0.0-0.7) K/uL Baso # (Auto) 0.0 (0.0-0.2) K/uL PT (9.8-13.1) Seconds INR APTT (25.6-37.1) Seconds Sodium 143 (132-148) mmol/l Potassium 3.7 (3.6-5.0) MMOL/L Chloride 108 H (98-107) mmol/L Carbon Dioxide 27 (22-30) mmol/L Anion Gap 12 (10-20) BUN 17 (9-20) mg/dl Creatinine 1.0 (0.8-1.5) mg/dl Est GFR ( Amer) > 60 Est GFR (Non-Af Amer) > 60 POC Glucose (mg/dL) 141 H (65-110) mg/dL Random Glucose 117 H (75-110) mg/dL Calcium 8.6 (8.4-10.2) mg/dL Total Bilirubin 0.8 (0.2-1.3) mg/dl AST 47 (17-59) U/L ALT 21 D (21-72) U/L Alkaline Phosphatase 67 (38-126) U/L Troponin I (0.00-0.120) ng/mL Total Protein 7.8 (6.3-8.2) G/DL Albumin 4.0 (3.5-5.0) g/dL Globulin 3.8 (2.2-3.9) gm/dL Albumin/Globulin Ratio 1.1 (1.0-2.1) Salicylates mg/dl Urine Opiates Screen (NEGATIVE) Urine Methadone Screen (NEGATIVE) Acetaminophen (10.0-30.0) ug/ml Ur Barbiturates Screen (NEGATIVE) Ur Phencyclidine Scrn (NEGATIVE) Ur Amphetamines Screen (NEGATIVE) U Benzodiazepines Scrn (NEGATIVE) U Oth Cocaine Metabols (NEGATIVE) U Cannabinoids Screen (NEGATIVE) Alcohol, Quantitative (0-10) mg/dl 10/28/17 10/28/17 10/28/17 Range/Units 18:52 15:18 15:18 WBC (4.8-10.8) K/uL RBC (4.40-5.90) Mil/uL Hgb (12.0-18.0) g/dL Hct (35.0-51.0) % MCV (80.0-94.0) fl MCH (27.0-31.0) pg MCHC (33.0-37.0) g/dL RDW (11.5-14.5) % Plt Count (130-400) K/uL MPV (7.2-11.7) fl Neut % (Auto) (50.0-75.0) % Lymph % (Auto) (20.0-40.0) % Franklin % (Auto) (0.0-10.0) % Eos % (Auto) (0.0-4.0) % Baso % (Auto) (0.0-2.0) % Neut # (Auto) (1.8-7.0) K/uL Lymph # (Auto) (1.0-4.3) K/uL Franklin # (Auto) (0.0-0.8) K/uL Eos # (Auto) (0.0-0.7) K/uL Baso # (Auto) (0.0-0.2) K/uL PT (9.8-13.1) Seconds INR APTT (25.6-37.1) Seconds Sodium (132-148) mmol/l Potassium (3.6-5.0) MMOL/L Chloride (98-107) mmol/L Carbon Dioxide (22-30) mmol/L Anion Gap (10-20) BUN (9-20) mg/dl Creatinine (0.8-1.5) mg/dl Est GFR ( Amer) Est GFR (Non-Af Amer) POC Glucose (mg/dL) 70 (65-110) mg/dL Random Glucose (75-110) mg/dL Calcium (8.4-10.2) mg/dL Total Bilirubin (0.2-1.3) mg/dl AST (17-59) U/L ALT (21-72) U/L Alkaline Phosphatase (38-126) U/L Troponin I (0.00-0.120) ng/mL Total Protein (6.3-8.2) G/DL Albumin (3.5-5.0) g/dL Globulin (2.2-3.9) gm/dL Albumin/Globulin Ratio (1.0-2.1) Salicylates < 1.0 mg/dl Urine Opiates Screen Negative (NEGATIVE) Urine Methadone Screen Negative (NEGATIVE) Acetaminophen < 10.0 L (10.0-30.0) ug/ml Ur Barbiturates Screen Negative (NEGATIVE) Ur Phencyclidine Scrn Negative (NEGATIVE) Ur Amphetamines Screen Negative (NEGATIVE) U Benzodiazepines Scrn Negative (NEGATIVE) U Oth Cocaine Metabols Negative (NEGATIVE) U Cannabinoids Screen Negative (NEGATIVE) Alcohol, Quantitative (0-10) mg/dl 10/28/17 10/28/17 10/28/17 Range/Units 15:18 15:18 15:18 WBC 10.5 (4.8-10.8) K/uL RBC 5.31 (4.40-5.90) Mil/uL Hgb 15.3 (12.0-18.0) g/dL Hct 45.1 (35.0-51.0) % MCV 85.0 (80.0-94.0) fl MCH 28.8 (27.0-31.0) pg MCHC 33.9 (33.0-37.0) g/dL RDW 13.4 (11.5-14.5) % Plt Count 322 (130-400) K/uL MPV 8.1 (7.2-11.7) fl Neut % (Auto) 71.0 (50.0-75.0) % Lymph % (Auto) 19.3 L (20.0-40.0) % Franklin % (Auto) 8.5 (0.0-10.0) % Eos % (Auto) 0.7 (0.0-4.0) % Baso % (Auto) 0.5 (0.0-2.0) % Neut # (Auto) 7.5 H (1.8-7.0) K/uL Lymph # (Auto) 2.0 (1.0-4.3) K/uL Franklin # (Auto) 0.9 H (0.0-0.8) K/uL Eos # (Auto) 0.1 (0.0-0.7) K/uL Baso # (Auto) 0.1 (0.0-0.2) K/uL PT 13.2 H (9.8-13.1) Seconds INR 1.2 APTT 36.6 (25.6-37.1) Seconds Sodium 145 (132-148) mmol/l Potassium 4.1 (3.6-5.0) MMOL/L Chloride 104 (98-107) mmol/L Carbon Dioxide 23 (22-30) mmol/L Anion Gap 22 H (10-20) BUN 21 H (9-20) mg/dl Creatinine 1.3 (0.8-1.5) mg/dl Est GFR ( Amer) > 60 Est GFR (Non-Af Amer) > 60 POC Glucose (mg/dL) (65-110) mg/dL Random Glucose 229 H (75-110) mg/dL Calcium 10.4 H (8.4-10.2) mg/dL Total Bilirubin 1.2 (0.2-1.3) mg/dl AST 60 H D (17-59) U/L ALT 27 (21-72) U/L Alkaline Phosphatase 86 (38-126) U/L Troponin I 0.0140 (0.00-0.120) ng/mL Total Protein 9.7 H (6.3-8.2) G/DL Albumin 4.9 (3.5-5.0) g/dL Globulin 4.8 H (2.2-3.9) gm/dL Albumin/Globulin Ratio 1.0 (1.0-2.1) Salicylates mg/dl Urine Opiates Screen (NEGATIVE) Urine Methadone Screen (NEGATIVE) Acetaminophen (10.0-30.0) ug/ml Ur Barbiturates Screen (NEGATIVE) Ur Phencyclidine Scrn (NEGATIVE) Ur Amphetamines Screen (NEGATIVE) U Benzodiazepines Scrn (NEGATIVE) U Oth Cocaine Metabols (NEGATIVE) U Cannabinoids Screen (NEGATIVE) Alcohol, Quantitative < 10 (0-10) mg/dl 10/28/17 Range/Units 14:47 WBC (4.8-10.8) K/uL RBC (4.40-5.90) Mil/uL Hgb (12.0-18.0) g/dL Hct (35.0-51.0) % MCV (80.0-94.0) fl MCH (27.0-31.0) pg MCHC (33.0-37.0) g/dL RDW (11.5-14.5) % Plt Count (130-400) K/uL MPV (7.2-11.7) fl Neut % (Auto) (50.0-75.0) % Lymph % (Auto) (20.0-40.0) % Franklin % (Auto) (0.0-10.0) % Eos % (Auto) (0.0-4.0) % Baso % (Auto) (0.0-2.0) % Neut # (Auto) (1.8-7.0) K/uL Lymph # (Auto) (1.0-4.3) K/uL Franklin # (Auto) (0.0-0.8) K/uL Eos # (Auto) (0.0-0.7) K/uL Baso # (Auto) (0.0-0.2) K/uL PT (9.8-13.1) Seconds INR APTT (25.6-37.1) Seconds Sodium (132-148) mmol/l Potassium (3.6-5.0) MMOL/L Chloride (98-107) mmol/L Carbon Dioxide (22-30) mmol/L Anion Gap (10-20) BUN (9-20) mg/dl Creatinine (0.8-1.5) mg/dl Est GFR ( Amer) Est GFR (Non-Af Amer) POC Glucose (mg/dL) 204 H (65-110) mg/dL Random Glucose (75-110) mg/dL Calcium (8.4-10.2) mg/dL Total Bilirubin (0.2-1.3) mg/dl AST (17-59) U/L ALT (21-72) U/L Alkaline Phosphatase (38-126) U/L Troponin I (0.00-0.120) ng/mL Total Protein (6.3-8.2) G/DL Albumin (3.5-5.0) g/dL Globulin (2.2-3.9) gm/dL Albumin/Globulin Ratio (1.0-2.1) Salicylates mg/dl Urine Opiates Screen (NEGATIVE) Urine Methadone Screen (NEGATIVE) Acetaminophen (10.0-30.0) ug/ml Ur Barbiturates Screen (NEGATIVE) Ur Phencyclidine Scrn (NEGATIVE) Ur Amphetamines Screen (NEGATIVE) U Benzodiazepines Scrn (NEGATIVE) U Oth Cocaine Metabols (NEGATIVE) U Cannabinoids Screen (NEGATIVE) Alcohol, Quantitative (0-10) mg/dl Laboratory Results - last 24 hr 10/28/17 10/28/17 10/28/17 14:47 15:18 15:18 WBC 10.5 RBC 5.31 Hgb 15.3 Hct 45.1 MCV 85.0 MCH 28.8 MCHC 33.9 RDW 13.4 Plt Count 322 MPV 8.1 Neut % (Auto) 71.0 Lymph % (Auto) 19.3 L Franklin % (Auto) 8.5 Eos % (Auto) 0.7 Baso % (Auto) 0.5 Neut # (Auto) 7.5 H Lymph # (Auto) 2.0 Franklin # (Auto) 0.9 H Eos # (Auto) 0.1 Baso # (Auto) 0.1 PT INR APTT Sodium 145 Potassium 4.1 Chloride 104 Carbon Dioxide 23 Anion Gap 22 H BUN 21 H Creatinine 1.3 Est GFR ( Amer) > 60 Est GFR (Non-Af Amer) > 60 POC Glucose (mg/dL) 204 H Random Glucose 229 H Calcium 10.4 H Total Bilirubin 1.2 AST 60 H D ALT 27 Alkaline Phosphatase 86 Troponin I 0.0140 Total Protein 9.7 H Albumin 4.9 Globulin 4.8 H Albumin/Globulin Ratio 1.0 Salicylates Urine Opiates Screen Urine Methadone Screen Acetaminophen Ur Barbiturates Screen Ur Phencyclidine Scrn Ur Amphetamines Screen U Benzodiazepines Scrn U Oth Cocaine Metabols U Cannabinoids Screen Alcohol, Quantitative < 10 10/28/17 10/28/17 10/28/17 15:18 15:18 15:18 WBC RBC Hgb Hct MCV MCH MCHC RDW Plt Count MPV Neut % (Auto) Lymph % (Auto) Franklin % (Auto) Eos % (Auto) Baso % (Auto) Neut # (Auto) Lymph # (Auto) Franklin # (Auto) Eos # (Auto) Baso # (Auto) PT 13.2 H INR 1.2 APTT 36.6 Sodium Potassium Chloride Carbon Dioxide Anion Gap BUN Creatinine Est GFR ( Amer) Est GFR (Non-Af Amer) POC Glucose (mg/dL) Random Glucose Calcium Total Bilirubin AST ALT Alkaline Phosphatase Troponin I Total Protein Albumin Globulin Albumin/Globulin Ratio Salicylates < 1.0 Urine Opiates Screen Negative Urine Methadone Screen Negative Acetaminophen < 10.0 L Ur Barbiturates Screen Negative Ur Phencyclidine Scrn Negative Ur Amphetamines Screen Negative U Benzodiazepines Scrn Negative U Oth Cocaine Metabols Negative U Cannabinoids Screen Negative Alcohol, Quantitative 10/28/17 10/28/17 10/29/17 18:52 19:31 04:25 WBC 7.7 RBC 4.61 Hgb 13.5 Hct 39.3 MCV 85.3 MCH 29.3 MCHC 34.3 RDW 13.1 Plt Count 266 MPV 7.5 Neut % (Auto) 56.5 Lymph % (Auto) 28.1 Franklin % (Auto) 12.3 H Eos % (Auto) 2.5 Baso % (Auto) 0.6 Neut # (Auto) 4.4 Lymph # (Auto) 2.2 Franklin # (Auto) 0.9 H Eos # (Auto) 0.2 Baso # (Auto) 0.0 PT INR APTT Sodium Potassium Chloride Carbon Dioxide Anion Gap BUN Creatinine Est GFR ( Amer) Est GFR (Non-Af Amer) POC Glucose (mg/dL) 70 141 H Random Glucose Calcium Total Bilirubin AST ALT Alkaline Phosphatase Troponin I Total Protein Albumin Globulin Albumin/Globulin Ratio Salicylates Urine Opiates Screen Urine Methadone Screen Acetaminophen Ur Barbiturates Screen Ur Phencyclidine Scrn Ur Amphetamines Screen U Benzodiazepines Scrn U Oth Cocaine Metabols U Cannabinoids Screen Alcohol, Quantitative 10/29/17 04:25 WBC RBC Hgb Hct MCV MCH MCHC RDW Plt Count MPV Neut % (Auto) Lymph % (Auto) Franklin % (Auto) Eos % (Auto) Baso % (Auto) Neut # (Auto) Lymph # (Auto) Franklin # (Auto) Eos # (Auto) Baso # (Auto) PT INR APTT Sodium 143 Potassium 3.7 Chloride 108 H Carbon Dioxide 27 Anion Gap 12 BUN 17 Creatinine 1.0 Est GFR ( Amer) > 60 Est GFR (Non-Af Amer) > 60 POC Glucose (mg/dL) Random Glucose 117 H Calcium 8.6 Total Bilirubin 0.8 AST 47 ALT 21 D Alkaline Phosphatase 67 Troponin I Total Protein 7.8 Albumin 4.0 Globulin 3.8 Albumin/Globulin Ratio 1.1 Salicylates Urine Opiates Screen Urine Methadone Screen Acetaminophen Ur Barbiturates Screen Ur Phencyclidine Scrn Ur Amphetamines Screen U Benzodiazepines Scrn U Oth Cocaine Metabols U Cannabinoids Screen Alcohol, Quantitative EKG/Cardiology Studies: Cardiology / EKG Studies 10/28/17 14:49 ELECTROCARDIOGRAM Stat Comment: Mode Of Transportation: Reason For Exam: needed Fingerstick Blood Sugar Results: 75 Critical Care Progress Note - Nutrition Nutrition: Nutrition Category Date Time Status NPO Diet [DIET] Diets 10/28/17 Dinner Active Assessment/Plan - Assessment and Plan (Free Text) Assessment: A/P Acute catatonic state, schizoaffective disorder, psychosis, hypoglycemia - Psychiatry follow up - Follow up FS - Continue meds - DVT prophylaxis
[2017-10-29 14:07] LABS: SQUAMOUS EPITHIAL < 1 /hpf (0-5); URINE BACTERIA RARE (<OCC); URINE BILIRUBIN NEGATIVE (NEGATIVE); URINE BLOOD LARGE (NEGATIVE); URINE CLARITY SLIGHTY-CLOUDY (Clear); URINE COLOR YELLOW (YELLOW); URINE GLUCOSE (UA) 150 mg/dL (Normal); URINE HYALINE CAST 0-2 /hpf (0-2); URINE LEUKOCYTE ESTERASE TRACE Leu/uL (Negative); URINE PROTEIN 100 mg/dL (NEGATIVE); URINE UROBILINOGEN 0.2-1.0 mg/dL (0.2-1.0)
--- NOTE | 2017-10-29 16:42 | RAD ---
Date of service: 10/28/2017 HISTORY: crisis eval COMPARISON: 04/15/2017 FINDINGS: LUNGS: No active pulmonary disease. PLEURA: No significant pleural effusion identified, no pneumothorax apparent. CARDIOVASCULAR: Normal. OSSEOUS STRUCTURES: No significant abnormalities. VISUALIZED UPPER ABDOMEN: Normal. OTHER FINDINGS: None. IMPRESSION: No active disease.
[2017-10-29] MEDS: Dextrose 5%/Lactated Ringer's 1,000 ML IV SCH (23:31)
--- NOTE | 2017-10-30 08:34 | CP.PCM.CON ---
History of Present Illness - History of Present Illness History of Present Illness: Psychiatry consult note CC: Patient not-responsive to questioning although awake HPI: 37 yo male w/ h/o schizoaffective disorder presents acutely decompensated and not-responsive to any questions. Patient has a history of past psychiatric hospitalizations at [facility] [place]. His eye are open but he does not answer any questions. He does not have posturing and Ativan has not caused any improvement in clinical status. Patient seems to be intentionally refusing to answer questions vs catatonia. Impression: 37 yo male w/ schizoaffective disorder, presents acutely decompensated, does not have capacity to sign in for voluntary admission at this time due to complete refusal to talk. It is unclear if patient understands what is currently happening or his current medical/psychiatric condition. -Screen for involuntary psychiatric admission when patient is medically stable Past Patient History - Infectious Disease Hx of Infectious Diseases: None - Past Medical History & Family History Past Medical History?: Yes - Past Social History Smoking Status: Unknown If Ever Smoked - CARDIAC Hx Cardiac Disorders: No Hx Hypertension: No - PULMONARY Hx Tuberculosis: No - NEUROLOGICAL HX Cerebrovascular Accident: No Hx Seizures: No - HEMATOLOGICAL/ONCOLOGICAL Hx Cancer: No Hx Human Immunodeficiency Virus (HIV): No - MUSCULOSKELETAL/RHEUMATOLOGICAL Hx Falls: No - GENITOURINARY/GYNECOLOGICAL Hx Sexually Transmitted Disorders: No - PSYCHIATRIC Hx Schizophrenia: Yes Meds Allergies/Adverse Reactions: Allergies Allergy/AdvReac Type Severity Reaction Status Date / Time No Known Allergies Allergy Verified 07/02/15 12:19 - Medications Medications: Current Medications Dextrose (Dextrose 50% Inj) 0 ml IV STAT PRN; Protocol PRN Reason: Hypoglycemia Protocol Last Admin: 10/29/17 23:00 Dose: 50 ml Dextrose/Lactated Ringer's (Dextrose 5%/Lactated Ringer's) 1,000 mls @ 100 mls/ hr IV .Q10H RAKAN Stop: 10/30/17 23:07 Last Admin: 10/29/17 23:31 Dose: 100 mls/hr Lorazepam (Ativan) 1 mg IVP Q4 PRN PRN Reason: Agitation Ondansetron HCl (Zofran Inj) 4 mg IVP Q6H PRN PRN Reason: Nausea/Vomiting Results - Vital Signs Recent Vital Signs: Last Vital Signs Temp 99.1 F 10/30/17 07:49 Pulse 62 10/30/17 07:49 Resp 19 10/30/17 07:49 BP 134/84 10/30/17 07:49 Pulse Ox 99 10/30/17 07:49 - Labs Result Diagrams: 10/29/17 04:25 10/29/17 04:25 Labs: Laboratory Results - last 24 hr 10/29/17 13:39 Urine Color Yellow Urine Clarity Slighty-cloudy Urine pH 6.0 Ur Specific [place] 1.034 H Urine Protein 100 Urine Glucose (UA) 150 Urine Ketones 20 Urine Blood Large Urine Nitrate Negative Urine Bilirubin Negative Urine Urobilinogen 0.2-1.0 Ur Leukocyte Esterase Trace Urine RBC (Auto) 116 H Urine Microscopic WBC 13 H Ur Squamous Epith Cells < 1 Urine Bacteria Rare Hyaline Casts 0-2
[2017-10-30] MEDS: Dextrose 5%/Lactated Ringer's 1,000 ML IV SCH ×2 (10:37→20:45)
[2017-10-30] MEDS ORDERED: DiphenhydrAMINE 50 mg/ml Inj IM PRN (11:43)
[2017-10-31 01:57] LABS: URINE BACTERIA RARE (<OCC); URINE BILIRUBIN NEGATIVE (NEGATIVE); URINE BLOOD SMALL (NEGATIVE); URINE CLARITY SLIGHTY-CLOUDY (Clear); URINE COLOR YELLOW (YELLOW); URINE GLUCOSE (UA) NEG (Normal); URINE LEUKOCYTE ESTERASE TRACE Leu/uL (Negative); URINE PROTEIN NEGATIVE (NEGATIVE)
--- NOTE | 2017-10-31 07:44 | CP.PCM.HP ---
History of Present Illness - History of Present Illness History of Present Illness: This is a 37 y/o male admitted for catatonia. He was noted to be sitting on someone,s porch awake , eyes were opened but not talking. No history could be extracted from the patient. He was noted to be hypoglycemic hence was brought to the ER. He was previously admitted to [facility] for schizophrenia. it is not known what medications is he on. Past Patient History - Infectious Disease Hx of Infectious Diseases: None - Past Medical History & Family History Past Medical History?: Yes - Past Social History Smoking Status: Unknown If Ever Smoked - CARDIAC Hx Cardiac Disorders: No Hx Hypertension: No - PULMONARY Hx Tuberculosis: No - NEUROLOGICAL HX Cerebrovascular Accident: No Hx Seizures: No - HEMATOLOGICAL/ONCOLOGICAL Hx Cancer: No Hx Human Immunodeficiency Virus (HIV): No - MUSCULOSKELETAL/RHEUMATOLOGICAL Hx Falls: No - GENITOURINARY/GYNECOLOGICAL Hx Sexually Transmitted Disorders: No - PSYCHIATRIC Hx Schizophrenia: Yes Meds Allergies/Adverse Reactions: Allergies Allergy/AdvReac Type Severity Reaction Status Date / Time No Known Allergies Allergy Verified 07/02/15 12:19 Results - Vital Signs Recent Vital Signs: Last Vital Signs Temp 97.8 F 10/31/17 00:00 Pulse 58 L 10/31/17 00:00 Resp 18 10/31/17 00:00 BP 126/79 10/31/17 00:00 Pulse Ox 100 10/31/17 00:00 - Labs Result Diagrams: 10/29/17 04:25 10/29/17 04:25 Labs: Laboratory Results - last 24 hr 10/29/17 10/31/17 09:55 01:00 Hemoglobin A1c 5.1 Urine Color Yellow Urine Clarity Slighty-cloudy Urine pH 6.0 Ur Specific [place] 1.015 Urine Protein Negative Urine Glucose (UA) Neg Urine Ketones Negative Urine Blood Small Urine Nitrate Negative Urine Bilirubin Negative Urine Urobilinogen 4.0 Ur Leukocyte Esterase Trace Urine RBC (Auto) 8 H Urine Microscopic WBC 11 H Urine Bacteria Rare
--- NOTE | 2017-10-31 07:46 | CP.PCM.PN ---
Subjective - Date & Time of Evaluation Date of Evaluation: 10/30/17 Time of Evaluation: 15:00 - Subjective Subjective: Patient remains stable and started to gaze at times. Still not talking. He just stares on the ceiling. Has no intake. All labs are within normal. Currently on IV fluids. BP has been stable. Objective - Vital Signs/Intake and Output Vital Signs (last 24 hours): Temp Pulse Resp BP Pulse Ox 97.8 F 58 L 18 126/79 100 10/31/17 00:00 10/31/17 00:00 10/31/17 00:00 10/31/17 00:00 10/31/17 00:00 Intake and Output: 10/31/17 10/31/17 06:59 18:59 Intake Total 1200 Output Total 450 Balance 750 - Medications Medications: Current Medications Dextrose (Dextrose 50% Inj) 0 ml IV STAT PRN; Protocol PRN Reason: Hypoglycemia Protocol Last Admin: 10/29/17 23:00 Dose: 50 ml Diphenhydramine HCl (Benadryl) 50 mg IM Q8 PRN PRN Reason: Agitation Diphenhydramine HCl (Benadryl) 50 mg PO Q8 PRN PRN Reason: Agitation Haloperidol (Haldol) 5 mg PO Q8 PRN PRN Reason: Agitation Haloperidol Lactate (Haldol) 5 mg IM Q8 PRN PRN Reason: Agitation Lorazepam (Ativan) 2 mg PO Q8 PRN PRN Reason: Agitation Lorazepam (Ativan) 2 mg IVP Q8 PRN PRN Reason: Agitation Ondansetron HCl (Zofran Inj) 4 mg IVP Q6H PRN PRN Reason: Nausea/Vomiting - Labs Labs: 10/29/17 04:25 10/29/17 04:25 PT 13.2 Seconds (9.8-13.1) H 10/28/17 15: INR 1.2 10/28/17 15: APTT 36.6 Seconds (25.6-37.1) 10/28/17:18
[2017-10-31] MEDS ORDERED: Dextrose 5%/Lactated Ringer's 1,000 ML IV SCH (11:30)
[2017-10-31] MEDS: Dextrose 5%/Lactated Ringer's 1,000 ML IV SCH (22:40)
[2017-11-01] MEDS: Dextrose 5%/Lactated Ringer's 1,000 ML IV SCH (08:19)
--- NOTE | 2017-11-01 14:48 | CP.PCM.PN ---
Subjective - Date & Time of Evaluation Date of Evaluation: 11/01/17 Time of Evaluation: 09:50 - Subjective Subjective: 37 y/o M admitted due to catatonia. Pt is not communicating but and does not follow commands. Pt afebrile and with no acute events overnight. Pt has been eaten all his food since this morning. Objective - Vital Signs/Intake and Output Vital Signs (last 24 hours): Temp Pulse Resp BP Pulse Ox 98.5 F 65 20 121/79 99 11/01/17 08:08 11/01/17 08:08 11/01/17 08:08 11/01/17 08:08 11/01/17 08:08 Intake and Output: 11/01/17 11/01/17 06:59 18:59 Intake Total 1000 Output Total 500 Balance 500 - Medications Medications: Current Medications Dextrose (Dextrose 50% Inj) 0 ml IV STAT PRN; Protocol PRN Reason: Hypoglycemia Protocol Last Admin: 10/29/17 23:00 Dose: 50 ml Diphenhydramine HCl (Benadryl) 50 mg IM Q8 PRN PRN Reason: Agitation Diphenhydramine HCl (Benadryl) 50 mg PO Q8 PRN PRN Reason: Agitation Haloperidol (Haldol) 5 mg PO Q8 PRN PRN Reason: Agitation Haloperidol Lactate (Haldol) 5 mg IM Q8 PRN PRN Reason: Agitation Dextrose/Lactated Ringer's (Dextrose 5%/Lactated Ringer's) 1,000 mls @ 100 mls/ hr IV .Q10H RAKAN Stop: 11/01/17 18:05 Last Admin: 11/01/17 08:19 Dose: Not Given Lorazepam (Ativan) 2 mg PO Q8 PRN PRN Reason: Agitation Lorazepam (Ativan) 2 mg IVP Q8 PRN PRN Reason: Agitation Last Admin: 10/31/17 12:44 Dose: 2 mg Ondansetron HCl (Zofran Inj) 4 mg IVP Q6H PRN PRN Reason: Nausea/Vomiting - Labs Labs: 10/29/17 04:25 10/29/17 04:25 PT 13.2 Seconds (9.8-13.1) H 10/28/17 15:18 INR 1.2 10/28/17 15:18 APTT 36.6 Seconds (25.6-37.1) 10/28/17 15:18 - Constitutional Appears: Well, No Acute Distress - Head Exam Head Exam: ATRAUMATIC, NORMAL INSPECTION - Eye Exam Eye Exam: EOMI, Normal appearance - ENT Exam ENT Exam: Mucous Membranes Moist - Neck Exam Neck Exam: Full ROM - Respiratory Exam Respiratory Exam: Clear to Ausculation Bilateral, NORMAL BREATHING PATTERN - Cardiovascular Exam Cardiovascular Exam: REGULAR RHYTHM, +S1, +S2 - GI/Abdominal Exam GI & Abdominal Exam: Soft, Normal Bowel Sounds. absent: Distended, Tenderness - Extremities Exam Extremities Exam: Normal Inspection. absent: Calf Tenderness - Neurological Exam Neurological Exam: Awake Additional comments: Pt is still not verbalizing, follows you with sight, EOMI, PERRL. Assessment and Plan - Assessment and Plan (Free Text) Assessment: 37 y/o M with a PMHx of psychoaffective disorder was admitted for evaluation of catatonia vs voluntary refusal to communicate. --Tolerating PO. --Seems to be improving as pt is eating more and more. Still NOT talking. --Pt is stable for transferring to psych rehabilitation unit. --Awaiting approval for transfer to Psych rehabilitation program. --Continue management as ordered.
[2017-11-02] MEDS ORDERED: Sterile Water 10 ML IV ONE (13:27)
[2017-11-02 16:55] VITALS: BP 113/80; PULSE 86; RESP 18; TEMP 99.4; O2SAT 98
--- NOTE | 2017-11-03 05:36 | CP.PCM.DIS ---
Provider - Provider Date of Admission: 10/28/17 19:12 Attending physician: Nathan Alcazar MD Consults: Psychiatry: Dr Ferris Time Spent in preparation of Discharge (in minutes): 25 Diagnosis - Discharge Diagnosis (1) Catatonia Status: Acute Comment: -Pt medically stable to be transferred to psychiatry rehabilitation facility. Hospital Course - Lab Results Lab Results: Micro Results 10/29/17 09:45 Naris MRSA Culture (Admit) - Final MRSA NOT DETECTED 10/28/17 08:00 Naris MRSA Culture (Admit) - Final MRSA NOT DETECTED 10/29/17 13:39 Urine,De La Garza Urine Culture - Final No Growth (<1,000 CFU/ML) Most Recent Lab Values WBC 7.7 K/uL (4.8-10.8) 10/29/17 04:25 RBC 4.61 Mil/uL (4.40-5.90) 10/29/17 04:25 Hgb 13.5 g/dL (12.0-18.0) 10/29/17 04:25 Hct 39.3 % (35.0-51.0) 10/29/17 04:25 MCV 85.3 fl (80.0-94.0) 10/29/17 04:25 MCH 29.3 pg (27.0-31.0) 10/29/17 04:25 MCHC 34.3 g/dL (33.0-37.0) 10/29/17 04:25 RDW 13.1 % (11.5-14.5) 10/29/17 04:25 Plt Count 266 K/uL (130-400) 10/29/17 04:25 MPV 7.5 fl (7.2-11.7) 10/29/17 04:25 Neut % (Auto) 56.5 % (50.0-75.0) 10/29/17 04:25 Lymph % (Auto) 28.1 % (20.0-40.0) 10/29/17 04:25 Todd % (Auto) 12.3 % (0.0-10.0) H 10/29/17 04:25 Eos % (Auto) 2.5 % (0.0-4.0) 10/29/17 04:25 Baso % (Auto) 0.6 % (0.0-2.0) 10/29/17 04:25 Neut # (Auto) 4.4 K/uL (1.8-7.0) 10/29/17 04:25 Lymph # (Auto) 2.2 K/uL (1.0-4.3) 10/29/17 04:25 Todd # (Auto) 0.9 K/uL (0.0-0.8) H 10/29/17 04:25 Eos # (Auto) 0.2 K/uL (0.0-0.7) 10/29/17 04:25 Baso # (Auto) 0.0 K/uL (0.0-0.2) 10/29/17 04:25 PT 13.2 Seconds (9.8-13.1) H 10/28/17 15:18 INR 1.2 10/28/17 15:18 APTT 36.6 Seconds (25.6-37.1) 10/28/17 15:18 Sodium 143 mmol/l (132-148) 10/29/17 04:25 Potassium 3.7 MMOL/L (3.6-5.0) 10/29/17 04:25 Chloride 108 mmol/L (98-107) H 10/29/17 04:25 Carbon Dioxide 27 mmol/L (22-30) 10/29/17 04:25 Anion Gap 12 (10-20) 10/29/17 04:25 BUN 17 mg/dl (9-20) 10/29/17 04:25 Creatinine 1.0 mg/dl (0.8-1.5) 10/29/17 04:25 Est GFR ( Amer) > 60 10/29/17 04:25 Est GFR (Non-Af Amer) > 60 10/29/17 04:25 POC Glucose (mg/dL) 190 mg/dL (65-110) H 11/02/17 15:34 Random Glucose 117 mg/dL (75-110) H 10/29/17 04:25 Hemoglobin A1c 5.1 % (4.2-6.5) 10/29/17 09:55 Calcium 8.6 mg/dL (8.4-10.2) 10/29/17 04:25 Total Bilirubin 0.8 mg/dl (0.2-1.3) 10/29/17 04:25 AST 47 U/L (17-59) 10/29/17 04:25 ALT 21 U/L (21-72) D 10/29/17 04:25 Alkaline Phosphatase 67 U/L (38-126) 10/29/17 04:25 Troponin I 0.0140 ng/mL (0.00-0.120) 10/28/17 15:18 Total Protein 7.8 G/DL (6.3-8.2) 10/29/17 04:25 Albumin 4.0 g/dL (3.5-5.0) 10/29/17 04:25 Globulin 3.8 gm/dL (2.2-3.9) 10/29/17 04:25 Albumin/Globulin Ratio 1.1 (1.0-2.1) 10/29/17 04:25 Urine Color Yellow (YELLOW) 10/31/17 01:00 Urine Clarity Slighty-cloudy (Clear) 10/31/17 01:00 Urine pH 6.0 (5.0-8.0) 10/31/17 01:00 Ur Specific [place] 1.015 (1.003-1.030) 10/31/17 01:00 Urine Protein Negative mg/dL (NEGATIVE) 10/31/17 01:00 Urine Glucose (UA) Neg mg/dL (Normal) 10/31/17 01:00 Urine Ketones Negative mg/dL (NEGATIVE) 10/31/17 01:00 Urine Blood Small (NEGATIVE) 10/31/17 01:00 Urine Nitrate Negative (NEGATIVE) 10/31/17 01:00 Urine Bilirubin Negative (NEGATIVE) 10/31/17 01:00 Urine Urobilinogen 4.0 mg/dL (0.2-1.0) 10/31/17 01:00 Ur Leukocyte Esterase Trace Misti/uL (Negative) 10/31/17 01:00 Urine RBC (Auto) 8 /hpf (0-3) H 10/31/17 01:00 Urine Microscopic WBC 11 /hpf (0-5) H 10/31/17 01:00 Ur Squamous Epith Cells < 1 /hpf (0-5) 10/29/17 13:39 Urine Bacteria Rare (<OCC) 10/31/17 01:00 Hyaline Casts 0-2 /hpf (0-2) 10/29/17 13:39 Salicylates < 1.0 mg/dl 10/28/17 15:18 Urine Opiates Screen Negative (NEGATIVE) 10/28/17 15:18 Urine Methadone Screen Negative (NEGATIVE) 10/28/17 15:18 Acetaminophen < 10.0 ug/ml (10.0-30.0) L 10/28/17 15:18 Ur Barbiturates Screen Negative (NEGATIVE) 10/28/17 15:18 Ur Phencyclidine Scrn Negative (NEGATIVE) 10/28/17 15:18 Ur Amphetamines Screen Negative (NEGATIVE) 10/28/17 15:18 U Benzodiazepines Scrn Negative (NEGATIVE) 10/28/17 15:18 U Oth Cocaine Metabols Negative (NEGATIVE) 10/28/17 15:18 U Cannabinoids Screen Negative (NEGATIVE) 10/28/17 15:18 Alcohol, Quantitative < 10 mg/dl (0-10) 10/28/17 15:18 - Hospital Course Hospital Course: 37 y/o M with a PMHx of psychoaffective disorder was admitted for evaluation of catatonia vs voluntary refusal to communicate. Pt remained without talking during whole admission. Psychiatry evaluated patient. Pt would benefit from being admitted to a specialized psychiatry/behavioral rehabilitation establishment. Pt remained afebrile, tolerating PO, eating most of his plate. Pt medically stable for transfer. - Date & Time of H&P Date of H&P: 10/29/17 Time of H&P: 10:41 Discharge Exam - Head Exam Head Exam: ATRAUMATIC, NORMAL INSPECTION Discharge Plan - Follow Up Plan Condition: FAIR Disposition: Transfer [facility]
--- NOTE | 2017-11-03 09:16 | CARD ---
APPROVED REPORT Date of service: 11/02/2017 EKG Measurement Heart [id number] <Conclusion> Normal sinus rhythm with sinus arrhythmia Possible Left atrial enlargement Nonspecific T wave abnormality Abnormal ECG
== END 2017-11-02 20:50 | DRG 430 ==
LOC: H.ER 14:41 → H.ERHOLD 19:12 → H.ICU/CCU 10-29 01:30 → H.MEDSURG1 10-29 20:25
PROVIDERS: ADMIT Family Medicine; ATTEND Family Medicine
DX: F20.2 Catatonic schizophrenia (principal); E16.2 Hypoglycemia, unspecified

== ENCOUNTER 2017-12-14 04:32 | Emergency (ER) | payer MEDICAID ==
[2017-12-14 04:32] VITALS: BMI 25.7
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
[2017-12-14 05:58] LABS: BASO # 0.1 K/uL (0.0-0.2); BASO % 0.5 % (0.0-2.0); EOS # 0.2 K/uL (0.0-0.7); EOS % 2.3 % (0.0-4.0); HEMOGLOBIN 13.8 g/dL (12.0-18.0); LYMPH # 1.4 K/uL (1.0-4.3); LYMPH % 14.8 % (20.0-40.0); MEAN CELL VOLUME 86.6 fl (80.0-94.0); MEAN CORPUSCULAR HEMOGLOBIN 29.5 pg (27.0-31.0); MEAN CORPUSCULAR HGB CONC 34.1 g/dL (33.0-37.0); MEAN PLATELET VOLUME 7.3 fl (7.2-11.7); MONO # 1.1 K/uL (0.0-0.8); MONO % 11.8 % (0.0-10.0); NEUT # 6.7 K/uL (1.8-7.0); NEUT % 70.6 % (50.0-75.0); RBC 4.69 Mil/uL (4.40-5.90); RED CELL DISTRIBUTION WIDTH 13.8 % (11.5-14.5); WHITE BLOOD COUNT 9.5 K/uL (4.8-10.8)
[2017-12-14 06:09] LABS: ALBUMIN 4.3 g/dL (3.5-5.0); ALT/SGPT 73 U/L (21-72); AST/SGOT 50 U/L (17-59); BLOOD UREA NITROGEN 14 mg/dl (9-20); CALCIUM 9.2 mg/dL (8.4-10.2); GFR NON-AFRICAN AMERICAN > 60
--- NOTE | 2017-12-14 07:22 | ED PDOC ---
- Laboratory Results Result Diagrams: 12/14/17 05:45 12/14/17 05:45 - ECG O2 Sat by Pulse Oximetry: 100 (RA) Pulse Ox Interpretation: Normal Medical Decision Making Medical Decision Making: Time: 07:00 --Patient care endorsed from Dr. Monique to Dr. Javed pending urine for medical clearance for [facility]. Time: 14:00 --Provider notes that patient has a borderline UTI and was given a dose of Macrobid 100 mg PO Q12 cap. Time: 1500 EKG WNL, CXR WNL pt medically cleared for [facility] --Patient care endorsed to Dr. Aly pending [facility] bed. Scribe Attestation: Documented by Matt De La Torre acting as a scribe for Capri Javed MD Provider Scribe Attestation: All medical record entries made by the Scribe were at my direction and personally dictated by me. I have reviewed the chart and agree that the record accurately reflects my personal performance of the history, physical exam, medical decision making, and the department course for this patient. I have also personally directed, reviewed, and agree with the discharge instructions and disposition. Disposition - Clinical Impression Clinical Impression: Psychosis - Disposition Condition: STABLE Forms: [employer] (Maori)
[2017-12-14 09:06] LABS: SQUAMOUS EPITHIAL < 1 /hpf (0-5); URINE BACTERIA RARE (<OCC); URINE BILIRUBIN NEGATIVE (NEGATIVE); URINE BLOOD NEGATIVE (NEGATIVE); URINE CLARITY SLIGHTY-CLOUDY (Clear); URINE COLOR YELLOW (YELLOW); URINE GLUCOSE (UA) NEG (Normal); URINE LEUKOCYTE ESTERASE SMALL Leu/uL (Negative); URINE PROTEIN 30 mg/dL (NEGATIVE); URINE UROBILINOGEN 0.2-1.0 mg/dL (0.2-1.0)
[2017-12-14 09:20] LABS: BARBITURATES, UR NEGATIVE (NEGATIVE); BENZODIAZEPINES, UR NEGATIVE (NEGATIVE); OPIATES, UR NEGATIVE (NEGATIVE); PHENCYCLIDINE, UR NEGATIVE (NEGATIVE)
--- NOTE | 2017-12-14 12:31 | RAD ---
Date of service: 12/14/2017 HISTORY: CLEARNACE COMPARISON: 10/28/2017 FINDINGS: LUNGS: No active pulmonary disease. PLEURA: No significant pleural effusion identified, no pneumothorax apparent. CARDIOVASCULAR: Normal. OSSEOUS STRUCTURES: No significant abnormalities. VISUALIZED UPPER ABDOMEN: Normal. OTHER FINDINGS: None. IMPRESSION: No active disease. No interval pathology noted.
--- NOTE | 2017-12-14 16:35 | CARD ---
APPROVED REPORT Date of service: 12/14/2017 EKG Measurement Heart [id number] <Conclusion> Normal sinus rhythm Normal ECG
--- NOTE | 2017-12-14 22:03 | ED PDOC ---
- Laboratory Results Result Diagrams: 12/14/17 05:45 12/14/17 05:45 - ECG O2 Sat by Pulse Oximetry: 98 Medical Decision Making Medical Decision Makin Pt care endorsed from Dr. Javed to Dr. Aly pending [facility] acceptance. 2201 Informed by smooth and burr worker composites that pt was evaluated and will be admitted to [facility] involuntary psych unit. 2242: Pt becoming acutely agitated, threatening staff. Attempts to verbally calm the patient and de-escalate the situation have been unsuccessful. Pt to get Haldol and Ativan with temporary restraints. Pt waiting for an available bed at [facility] \ Scribe Attestation: Documented by Carisa Eckert, acting as a scribe for Faiza Aly MD. Provider Scribe Attestation: All medical record entries made by the Scribe were at my direction and personally dictated by me. I have reviewed the chart and agree that the record accurately reflects my personal performance of the history, physical exam, medical decision making, and the department course for this patient. I have also personally directed, reviewed, and agree with the discharge instructions and disposition. Disposition - Clinical Impression Clinical Impression: Psychosis - POA Present On Arrival: None - Disposition Disposition: Discharged to Psych Hospital Disposition Time: 22:37 Condition: STABLE Forms: [employer] (Maltese)
--- NOTE | 2017-12-15 00:52 | ED PDOC ---
- Laboratory Results Result Diagrams: 12/14/17 05:45 12/14/17 05:45 - ECG O2 Sat by Pulse Oximetry: 99 Medical Decision Making Medical Decision Makin:00 -Patient endorsed to provider by Dr. Aly, pending [facility] bed availability. 07:00 -Patient will be signed out to Dr. Antony, pending [facility] bed availability. Disposition - Clinical Impression Clinical Impression: Psychosis - POA Present On Arrival: None - Disposition Disposition: Transfer of Care Disposition Time: 07:00 Condition: FAIR Forms: [employer] (Slovenian)
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
--- NOTE | 2017-12-15 13:55 | ED PDOC ---
- Laboratory Results Result Diagrams: 12/14/17 05:45 12/14/17 05:45 - ECG O2 Sat by Pulse Oximetry: 98 (RA) Pulse Ox Interpretation: Normal Medical Decision Making Medical Decision Making: Patient signed out to me by Dr. Quinteros pending [facility] transfer. 12:53 Patient with increased agitation, Haldol 5mg IM and Ativan 1mg IM given. Scribe Attestation: Documented by Sherin Keane, acting as a scribe for Franklin Antony MD. Provider Scribe Attestation: All medical record entries made by the Scribe were at my direction and personally dictated by me. I have reviewed the chart and agree that the record accurately reflects my personal performance of the history, physical exam, medical decision making, and the department course for this patient. I have also personally directed, reviewed, and agree with the discharge instructions and disposition. Disposition - Clinical Impression Clinical Impression: Psychosis - POA Present On Arrival: None - Disposition Disposition: Transfer of Care Disposition Time: 15:00 Condition: FAIR Forms: [employer] (Colombian) Patient Signed Over To: Faiza Aly
--- NOTE | 2017-12-15 19:28 | ED PDOC ---
- Laboratory Results Result Diagrams: 12/14/17 05:45 12/14/17 05:45 - ECG O2 Sat by Pulse Oximetry: 98 (RA) Pulse Ox Interpretation: Normal Medical Decision Making Medical Decision Making: Time: 19:00 --Patient care endorsed from Dr. Dunne to provider pending [facility] bed availability for involuntary commitment. 07:00 -Patient signed out to Dr. Gimenez pending bed availability at [facility]. Scribe Attestation: Documented by Matt De La Torre, acting as a scribe for Wicho Quinteros MD. Provider Scribe Attestation: All medical record entries made by the Scribe were at my direction and personally dictated by me. I have reviewed the chart and agree that the record accurately reflects my personal performance of the history, physical exam, medical decision making, and the department course for this patient. I have also personally directed, reviewed, and agree with the discharge instructions and disposition. Disposition - Clinical Impression Clinical Impression: Psychosis - Disposition Condition: FAIR Forms: [employer] (Swiss)
--- NOTE | 2017-12-16 13:49 | ED PDOC ---
- Laboratory Results Result Diagrams: 12/14/17 05:45 12/14/17 05:45 - ECG O2 Sat by Pulse Oximetry: 100 Medical Decision Making Medical Decision Making: patient received from Dr. Quinteros. Patient is awaiting bed [place] [facility]. He has been calm since Haldol IM until a short while ago when he became agitated again. Haldol 5mg IM ordered Disposition - Clinical Impression Clinical Impression: Psychosis - POA Present On Arrival: None - Disposition Disposition Time: 14:45 Condition: FAIR Forms: [employer] (Occitan) Patient Signed Over To: Sonali Brody
--- NOTE | 2017-12-16 16:05 | ED PDOC ---
- Laboratory Results Result Diagrams: 12/14/17 05:45 12/14/17 05:45 - ECG O2 Sat by Pulse Oximetry: 100 (RA) Pulse Ox Interpretation: Normal Medical Decision Making Medical Decision Makin Patient endorsed to me by Dr. Gimenez, pending transfer to [facility] for involuntary psych. 00:15 -Bed available at [facility]. Transfer initiated. ------- Scribe Attestation: Documented by Sera Porras, acting as a scribe for Sonali Brody MD. Provider Scribe Attestation: All medical record entries made by the Scribe were at my direction and personally dictated by me. I have reviewed the chart and agree that the record accurately reflects my personal performance of the history, physical exam, medical decision making, and the department course for this patient. I have also personally directed, reviewed, and agree with the discharge instructions and disposition. Disposition Counseled Patient/Family Regarding: Studies Performed, Diagnosis - Clinical Impression Clinical Impression: Psychosis - POA Present On Arrival: None - Disposition Disposition: Transfer of Care Disposition Time: 00:00 Condition: STABLE
--- NOTE | 2017-12-16 16:55 | CP.PCM.CON ---
History of Present Illness - History of Present Illness History of Present Illness: face to face evaluation pt continues to be delusional, with disorganized thought process and speech, has no insight into illness and refusing admission to psychiatry unit and reporting he is not in need of medications Past Patient History - Infectious Disease Hx of Infectious Diseases: None - Past Medical History & Family History Past Medical History?: Yes - Past Social History Smoking Status: Unknown If Ever Smoked - CARDIAC Hx Hypertension: No - PULMONARY Hx Tuberculosis: No - NEUROLOGICAL Hx Seizures: No - HEMATOLOGICAL/ONCOLOGICAL Hx Human Immunodeficiency Virus (HIV): No - MUSCULOSKELETAL/RHEUMATOLOGICAL Hx Falls: No - GENITOURINARY/GYNECOLOGICAL Hx Sexually Transmitted Disorders: No - PSYCHIATRIC Hx Schizophrenia: Yes Meds Allergies/Adverse Reactions: Allergies Allergy/AdvReac Type Severity Reaction Status Date / Time No Known Allergies Allergy Verified 07/02/15 12:19 Results - Vital Signs Recent Vital Signs: Last Vital Signs Temp 99.1 F 12/16/17 13:00 Pulse 92 H 12/16/17 13:00 Resp 18 12/16/17 13:00 BP 124/73 12/16/17 13:00 Pulse Ox 100 12/16/17 16:05 - Labs Result Diagrams: 12/14/17 05:45 12/14/17 05:45 Labs: Laboratory Results - last 24 hr 12/16/17 03:03 POC Glucose (mg/dL) 94 Assessment & Plan - Assessment and Plan (Free Text) Assessment: schizoaffective disorder bipolar type Plan: pt to be admitted involuntary to [facility] [place] for stabilization, awaiting bed start risperidone 2mg qhs
[2017-12-16] MEDS ORDERED: Risperidone M TAB 2 MG PO STA (19:28)
[2017-12-16] MEDS ORDERED: Risperidone M tab 1 MG PO ONE (19:29)
[2017-12-16] MEDS ORDERED: Risperidone M TAB 2 MG PO SCH (22:00)
[2017-12-17 02:02] VITALS: BP 126/78; PULSE 98; TEMP 98.4
[2017-12-17 06:16] VITALS: RESP 16
[2017-12-17 15:55] VITALS: O2SAT 100
== END 2017-12-17 02:30 | disposition short-term general hospital (02) ==
LOC: H.ER 04:32
DX: F25.0 Schizoaffective disorder, bipolar type (principal); Z91.19 Patient's noncompliance with other medical treatment and regimen
CPT/HCPCS: 71045; 80053; 80320; 80324; 80345; 80346; 80349; 80353; 80358; 80361; 81003; 82948; 83992; 85025; 93005; 96372; 99285; J1630; J2060

== ENCOUNTER 2017-12-19 09:33 | Emergency (ER) | payer MEDICAID ==
[2017-12-19 09:37] VITALS: BMI 29.6
[2017-12-19 09:39] VITALS: RESP 17; TEMP 98.9; O2SAT 99
--- NOTE | 2017-12-19 11:16 | ED PDOC ---
HPI: Psych/Substance Abuse Time Seen by Provider: 12/19/17 10:03 Chief Complaint (Nursing): Psychiatric Evaluation Chief Complaint (Provider): Psychiatric Evaluation History Per: Patient History/Exam Limitations: no limitations Additional Complaint(s): 37 years old male brought to ER by [facility] for psychiatric evaluation. Patient reports he went to to self-report that he stole a property. He states he went to [facility], where he was told he has to go to [facility]. Patient went to [facility] and lastly he was brought here. Patient offers no medical complaints at this time. He denies SIHI or hallucination. Patient was recently seen here on December 14, [place] [facility] and was discharged from there. PMD: non provided Past Medical History Reviewed: Historical Data, Nursing Documentation, Vital Signs Vital Signs: Last Vital Signs Temp 98.9 F 12/19/17 09:37 Pulse 84 12/19/17 09:37 Resp 17 12/19/17 09:37 BP 156/97 H 12/19/17 09:37 Pulse Ox 99 12/19/17 09:37 - Medical History PMH: Schizophrenia (schizoaffective) Denies: Diabetes, Hepatitis, HIV, HTN, Seizures, Sexually Transmitted Disease - Surgical History Surgical History: No Surg Hx - Family History Family History: States: Unknown Family Hx - Social History Current smoker - smoking cessation education provided: No Alcohol: None Drugs: Denies - Home Medications Home Medications: Ambulatory Orders Medication Instructions Recorded No Known Home Med 12/15/17 - Allergies Allergies/Adverse Reactions: Allergies Allergy/AdvReac Type Severity Reaction Status Date / Time No Known Allergies Allergy Verified 12/19/17 10:07 Review of Systems ROS Statement: Except As Marked, All Systems Reviewed And Found Negative Psych: Negative for: Suicidal ideation (or homicidal), Other (Hallucinations) Physical Exam - Reviewed Nursing Documentation Reviewed: Yes Vital Signs Reviewed: Yes - Physical Exam Appears: Positive for: Non-toxic, No Acute Distress Head Exam: Positive for: ATRAUMATIC, NORMOCEPHALIC Skin: Positive for: Normal Color, Warm, Dry Cardiovascular/Chest: Positive for: Regular Rate, Rhythm. Negative for: Murmur Respiratory: Positive for: Normal Breath Sounds. Negative for: Wheezing Gastrointestinal/Abdominal: Positive for: Normal Exam, Soft. Negative for: Tenderness Extremity: Positive for: Normal ROM. Negative for: Pedal Edema, Swelling Neurologic/Psych: Positive for: Alert, Oriented (x3) - ECG O2 Sat by Pulse Oximetry: 99 (RA) Pulse Ox Interpretation: Normal Medical Decision Making Medical Decision Making: Time: 7 Initial Impression: schizoaffective disorder. Initial Plan: --Alcohol serum --Urine drug screen --Crisis evaluation Patient functioning at baseline with no elements or acute psychosis 1040 Patient is cleared by crisis by Dr. Gant and stable for discharge. Scribe Attestation: Documented by Sera Porras, acting as a scribe for Gissel Valdez MD. Provider Scribe Attestation: All medical record entries made by the Scribe were at my direction and personally dictated by me. I have reviewed the chart and agree that the record accurately reflects my personal performance of the history, physical exam, medical decision making, and the department course for this patient. I have also personally directed, reviewed, and agree with the discharge instructions and disposition. Disposition - Clinical Impression Clinical Impression: Schizoaffective disorder - Disposition Referrals: [facility] [Outside] Disposition: Routine/Home Disposition Time: 10:40 Condition: STABLE Additional Instructions: ROMELIA DENSON, thank you for letting us take care of you today. Your provider was Gissel Valdez MD and you were treated for PSYCHIATRIC EVALUATION. The emergency medical care you received today was directed at your acute symptoms. If you were prescribed any medication, please fill it and take as directed. It may take several days for your symptoms to resolve. Return to the Emergency Department if your symptoms worsen, do not improve, or if you have any other problems. Please contact your doctor or call one of the physicians/clinics you have been referred to that are listed on the Patient Visit Information form that is included in your discharge packet. Bring any paperwork you were given at discharge with you along with any medications you are taking to your follow up visit. Our treatment cannot replace ongoing medical care by a primary care provider outside of the emergency department. Thank you for allowing the [facility] team to be part of your care today. If you had an X-Ray or CT scan: A Radiologist will review the ED reading if any change in treatment is needed we will contact you. If you had a blood, urine, or wound culture: It will take several days for the results, if any change in treatment is needed we will contact you. If you had an STI test: It will take 48 hours for the results. Please call after 1 week if you have not heard back. Instructions: Schizoaffective Disorder
[2017-12-19 11:20] VITALS: BP 146/86; PULSE 78
== END 2017-12-19 11:18 | disposition home or self-care (01) ==
LOC: H.ER 09:33
DX: F25.9 Schizoaffective disorder, unspecified (principal)

== ENCOUNTER 2018-05-26 03:34 | Emergency (ER) | payer MEDICAID ==
[2018-05-26 03:34] VITALS: BMI 29.6
[2018-05-26 04:40] VITALS: BP 147/96; PULSE 104; RESP 20; TEMP 98.7; O2SAT 99
--- NOTE | 2018-05-26 06:16 | ED PDOC ---
HPI: Psych/Substance Abuse Time Seen by Provider: 05/26/18 04:44 Chief Complaint (Nursing): Psychiatric Evaluation Chief Complaint (Provider): Psychiatric Evaluation History Per: Patient History/Exam Limitations: no limitations Onset/Duration Of Symptoms: Days Current Symptoms Are (Timing): Still Present Suicide/Self Injury Attempted (Context): None Additional Complaint(s): 38 year old male with a history of schizophrenia presents to the ED for a psychiatric evaluation. Patient reports anxiety and feels like he is "drowning" lately. He states he has sore throat as well. He denies fever or shortness of breath. PMD: none provided Past Medical History Reviewed: Historical Data, Nursing Documentation, Vital Signs Vital Signs: Last Vital Signs Temp 98.7 F 05/26/18 03:41 Pulse 104 H 05/26/18 03:41 Resp 20 05/26/18 03:41 BP 147/96 H 05/26/18 03:41 Pulse Ox 99 05/26/18 03:41 - Medical History PMH: Anxiety, Schizophrenia (schizoaffective) Denies: Diabetes, Hepatitis, HIV, HTN, Seizures, Sexually Transmitted Disease - Surgical History Surgical History: No Surg Hx - Family History Family History: States: Unknown Family Hx - Home Medications Home Medications: Ambulatory Orders Medication Instructions Recorded No Known Home Med 12/15/17 - Allergies Allergies/Adverse Reactions: Allergies Allergy/AdvReac Type Severity Reaction Status Date / Time No Known Allergies Allergy Verified 12/19/17 10:07 Review of Systems ROS Statement: Except As Marked, All Systems Reviewed And Found Negative Psych: Positive for: Anxiety. Negative for: Depression, Psychosis, Suicidal ideation (no homicidal ideation), Withdrawal Physical Exam - Reviewed Nursing Documentation Reviewed: Yes Vital Signs Reviewed: Yes - Physical Exam Appears: Positive for: Well, Non-toxic, No Acute Distress Head Exam: Positive for: ATRAUMATIC, NORMAL INSPECTION, NORMOCEPHALIC Cardiovascular/Chest: Negative for: Murmur Neurological/Psych: Positive for: Awake, Alert, Normal Tone, Oriented. Negative for: Motor/Sensory Deficits - ECG O2 Sat by Pulse Oximetry: 99 Pulse Ox Interpretation: Normal Medical Decision Making Medical Decision Makin:29 Impression: anxiety/ sore throat. full physical exam deferred initially as pt had to use the bathroom. Initial Plan: --Acetaminophen --Salicylate --UDS --Alcohol --CMP --CBC --1:1 observation --Crisis evaluation initially ad copy writer asked Ángela the field irrigation worker to evaluate patient as pt placed on 03-14 to assess psychiatric aspect. Pt currently denies suicidal or homicidal ideation. 06:14 Patient was evaluated by Ángela field irrigation worker, who established that he is not suicidal. The second attempt at examination by this ad copy writer was unsuccessful because the patient was not in the room. Before the provider could adequately examine the patient, he left prior to treatment completion/physical exam and further management. Scribe Attestation: Documented by Brittney Muñoz acting as a scribe for Capri Javed MD. Provider Scribe Attestation: All medical record entries made by the Scribe were at my direction and p ersonally dictated by me. I have reviewed the chart and agree that the record accurately reflects my personal performance of the history, physical exam, medical decision making, and the department course for this patient. I have also personally directed, reviewed, and agree with the discharge instructions and disposition. Disposition - Clinical Impression Clinical Impression: Schizophrenia - Patient ED Disposition Is Patient to be Admitted: No - Disposition Disposition: Left W/O Treatment Disposition Time: 06:05 Condition: STABLE Forms: [employer] (Finnish)
== END 2018-05-26 06:05 | disposition left against medical advice (07) ==
LOC: H.ER 03:34
DX: F25.9 Schizoaffective disorder, unspecified (principal); F41.9 Anxiety disorder, unspecified